=== PATIENT | male | born 1945 | race Caucasian/White ===

== ENCOUNTER 2018-01-04 11:05 | Day surgery (SDC) | payer MEDICARE ==
[~2018-01-04] VITALS: Ht 180.3 cm; Wt 77.1 kg
[2018-01-04] VITALS (12 sets, daily range): BP systolic 102–132; BP diastolic 61–76
[~2018-01-04 11:05] MED LIST: NO HOME MEDS
[2018-01-04] MEDS ORDERED: normal saline 1000ml 1,000 ML IV SCH ×3 (11:30→13:11)
[2018-01-04] MEDS ORDERED: MORP30CA16 PO (12:26)
[2018-01-04] MEDS ORDERED: HYDR-565 PO (12:26)
[2018-01-04] MEDS ORDERED: LIDOcaine 1%/PF (10mg/ml) 5ml vial ONE (12:28)
[2018-01-04] MEDS ORDERED: fentaNYL/PF 50MCG/1 ML 2ML syringe ONE (13:06)
[2018-01-04] MEDS ORDERED: diphenhydrAMINE 50 mg/ml inj ONE (13:06)
[2018-01-04] MEDS ORDERED: midazolam 2 mg/2 ml injection ONE (13:10)
[2018-01-04] MEDS ORDERED: fentaNYL/PF 50MCG/1 ML 2ML syringe IV PRN (13:15)
[2018-01-04] MEDS ORDERED: midazolam 2 mg/2 ml injection IV PRN (13:15)
== END 2018-01-04 15:00 | disposition home or self-care (01) ==
LOC: SSTAY O 11:05
PROVIDERS: ATTEND Radiology Diagnostic Radiology
DX: T80.218A Other infection due to central venous catheter, initial encounter (principal); Z85.72 Personal history of non-Hodgkin lymphomas; Z79.891 Long term (current) use of opiate analgesic; Z98.890 Other specified postprocedural states; Z87.891 Personal history of nicotine dependence; Y83.8 Other surgical procedures as the cause of abnormal reaction of the patient, or of later complication, without mention of misadventure at the time of the procedure; Y92.89 Other specified places as the place of occurrence of the external cause
CPT/HCPCS: 36590; A6219; A6258; A6266; A6402; A6449; J1200; J2001; J2250; J3010; J7030; 99152; 99153; A4620; A6257

== ENCOUNTER 2018-01-07 09:23 | Day surgery (SDC) | payer MEDICARE ==
[~2018-01-07 09:23] MED LIST changes: +HYDR-565 PO; +MORP30CA16 PO; -NO HOME MEDS
[2018-01-07] MEDS ORDERED: DOCU-28 PO (10:02)
[2018-01-07] MEDS ORDERED: ONDA4TAB6 PO (10:03)
== END 2018-01-07 10:32 | disposition home or self-care (01) ==
LOC: WOUND CARE 09:23
PROVIDERS: ATTEND Surgery
DX: T81.89XA Other complications of procedures, not elsewhere classified, initial encounter (principal); L98.491 Non-pressure chronic ulcer of skin of other sites limited to breakdown of skin; Z79.891 Long term (current) use of opiate analgesic; Z87.891 Personal history of nicotine dependence; Z85.71 Personal history of Hodgkin lymphoma; Y83.8 Other surgical procedures as the cause of abnormal reaction of the patient, or of later complication, without mention of misadventure at the time of the procedure; Y92.89 Other specified places as the place of occurrence of the external cause
CPT/HCPCS: 97597; A6021; A6212

== ENCOUNTER 2018-01-14 08:40 | Day surgery (SDC) | payer MEDICARE ==
[~2018-01-14 08:40] MED LIST changes: +DOCU-28 PO; +ONDA4TAB6 PO
[2018-01-14] MEDS ORDERED: LIDOcaine 2% 5ml jelly ONE (09:49)
== END 2018-01-14 10:20 | disposition home or self-care (01) ==
LOC: WOUND CARE 08:40
PROVIDERS: ATTEND Surgery
DX: T81.89XD Other complications of procedures, not elsewhere classified, subsequent encounter (principal); L98.491 Non-pressure chronic ulcer of skin of other sites limited to breakdown of skin; Z79.891 Long term (current) use of opiate analgesic; Z87.891 Personal history of nicotine dependence; Z85.71 Personal history of Hodgkin lymphoma; Y83.8 Other surgical procedures as the cause of abnormal reaction of the patient, or of later complication, without mention of misadventure at the time of the procedure
CPT/HCPCS: 97597; A6021; A6212

== ENCOUNTER 2018-01-21 09:16 | Day surgery (SDC) | payer MEDICARE | END 2018-01-21 10:34 | disposition home or self-care (01) | LOC: WOUND CARE 09:16 | PROVIDERS: ATTEND Surgery | DX: T81.89XD Other complications of procedures, not elsewhere classified, subsequent encounter (principal); L98.491 Non-pressure chronic ulcer of skin of other sites limited to breakdown of skin; Z79.891 Long term (current) use of opiate analgesic; Z87.891 Personal history of nicotine dependence; Y83.8 Other surgical procedures as the cause of abnormal reaction of the patient, or of later complication, without mention of misadventure at the time of the procedure; Z85.71 Personal history of Hodgkin lymphoma | CPT/HCPCS: 97597; A6021; A6212 ==

== ENCOUNTER 2018-02-04 09:18 | Outpatient (CLI) | payer MEDICARE | END 2018-02-05 10:15 | disposition home or self-care (01) | LOC: WOUND CARE 09:18 → EDSTATUS 09:30 → WOUND CARE 02-05 10:15 | PROVIDERS: ATTEND Surgery | DX: T81.89XD Other complications of procedures, not elsewhere classified, subsequent encounter (principal) | CPT/HCPCS: 97597; 99214 ==